=== PATIENT | female | born 1965 | race Caucasian/White ===

== ENCOUNTER 2019-11-19 10:44 | Emergency (ER) | payer MEDICAID, SELFPAY ==
[2019-11-19 10:45] VITALS: BP 136/80; PULSE 88; RESP 18; TEMP 36.8; O2SAT 96; BMI 28.0
--- NOTE | 2019-11-19 10:49 | ED.DCSUM_ITS ---
- ER Visit Summary Date of Service: 11/19/19 Chief Complaint: Right arm burn History of Present Illness: The patient is a 54 F who presents with right arm burn. She was at work today when her sleeve was caught in a steam machine. The machine activated and she sustained a thermal burn to the right arm. She is having pain in the distal upper arm to the mid forearm on the right-hand side. Her last tetanus was unknown. Fentanyl was given by EMS. She continues to have pain. She denies any nolasco to her face or hand on the right side. Physical Examination: Vital signs are reviewed. Skin exam reveals partial- thickness burn in the distal right upper arm to mid forearm area. There are a couple of blisters in the antecubital area on the right-hand side. She has no pain or nolasco on the right hand. She does have tenderness in these burn areas. Test Results: None performed Emergency Department Course and Treatment: Patient is given morphine for pain control. Her tetanus was updated. On reevaluation her right arm seems less red. She does have the blistered areas in the antecubital area. There are no new areas of blistering. Patient will have bacitracin applied to these areas. Worker's Compensation forms will be filled out. She will need to follow-up with [employer]. I will send her home with topical antibacterial cream. Treatment Plan: [] Disposition: Discharge Impression: Partial-thickness burn, right arm This note was generated with [employer] dictation software. It may contain incorrect words, spelling, and punctuation that were not noted in review of the chart prior to signing ED Disposition - Plan for ED Patient: Disposition: Home or Assisted Living Instructions: ED First- and Second-Degree Nolasco [facility] Prescriptions: Bacitracin Ointment 1 applic TOPICAL TID #1 tube Transmission Status: Pending to [facility] Naproxen [Naprosyn] 500 mg PO BID PRN #20 tab Transmission Status: Pending to [facility]
[2019-11-19 10:54] VITALS: BP 136/80; PULSE 82; RESP 18; TEMP 36.8; O2SAT 94
[2019-11-19] MEDS: Diphth,Pertuss(Acell),Tet Vac 0.5 ML Vial IM (10:57)
[2019-11-19] MEDS: Morphine 4 MG/ML Syringe IV (10:58)
[2019-11-19 11:45] VITALS: BP 147/67; PULSE 62; RESP 15; O2SAT 98
[2019-11-19] MEDS: BACITRACIN 15 GM Tube 1 APPLIC TOPICAL (11:48)
== END 2019-11-19 11:51 | disposition home or self-care (01) ==
PROVIDERS: Emergency Provider Emergency Medicine
DX: T22.00XA Burn of unspecified degree of shoulder and upper limb, except wrist and hand, unspecified site, initial encounter (principal); X17.XXXA Contact with hot engines, machinery and tools, initial encounter; Y93.9 Activity, unspecified; Y92.9 Unspecified place or not applicable
CPT/HCPCS: 90715; 96374; 99284; J7030

== ENCOUNTER 2020-02-11 14:00 | Outpatient (RCR) | payer OTHER, MEDICAID, SELFPAY ==
[2019-12-22 13:29] VITALS: BMI 28.0
--- NOTE | 2020-01-06 15:59 | HP.OTEVAL_ITS ---
Patient's Visit Information ELIS MORENO is a 54 year old F, referred to Occupational Therapy by VIOLA Lynch, with a diagnosis of second degree burn of right UE. Date of Evaluation: 01/06/20 Occupational Therapist: Samreen Jennings, OTR/Marivel, CHT - Subjective This 54 year old female as seen for OT eval with dx of right upper arm, forearm, and shoulder 2nd degree nolasco. Pt states while at work on 2019 her shirt sleeve got caught in the handle for steam. Pt states squad was called and the pt was taken to [facility] ER. pt is right handed. due to limited ROM and pain. pt states she does her own ADLs but states it takes longer due to limited motion. - Pain right UE 2 Pain Intensity Range: 8 - ROM Shoulder: right/left WNL Elbow: right -10/145 left -10/145 Forearm: right/left WNL ROM Comments: pt demo good ROM -but reports a pulling in her elbow - Strength Shoulder: right 4/5 left 4+/5 Elbow: right 4/5 left 4+/5 Environmental Test Technician: right 45# left 65# Lateral Pinch: right 6# left 12# Tripod Pinch: right 2# left 12# - Sensation Sensation Comments: denies - Quick DASH-Disab of Arm,Shoulder& Hand Quick DASH Score: 68.3325 - Goals Goal:: pt will demo a increase in right UE MMT to 4+/5 to increase pts ind. with ADLs and IADLs by d/c. pt will demo a increase in right driver recruiter strength to 55# or greater to return pt to ind. with ADls and IADLs by d/c Goal:: pt will demo right elbow ROM equal to unaffected UE by d/c to return pt to PLOF by d/c Goal:: pt will report with use of right UE with ADLs and IADLs pain no greater than 2/10 by d/c Goal:: pt will demo understanding of scar mtg by end of 2nd visit to decrease scar adhesions. - Rehabilitation General Assessment: pt demo with second degree burn of right UE, inner arm elbow forearm. skin is dry and open in areas- pt weak and limited with functional use of right UE with ADls. pt would benefit from skilled OT services 2x week for 3 weeks to return pt to PLOF. Today therapist ed. pt on use of protective arm sleeve when she returns to work, massage of soft tissue with cream or vasaline, along with ROM ex to simulate work task. pt demo understanding and agree to POC. Rehabilitation Potential: Good - Anticipated Interventions A/AAROM/PROM, Strengthening, Scar Care, Triggerpoint Release, Desensitization, Sensory Retraining, Wound Care, Modalities, Orthoses, Joint Protection/Energy Conservation, Ergonomic Education - Visit Plan Frequency: 1-2x /Week Duration: 3 Weeks TEXT: Thank you for the opportunity to evaluate your patient. For Medicare and Medicare HMO plans, please review the plan of care and approve it. It will need to be FAXED BACK to us at [phone] for Medicare purposes. Please let me know if there are questions or concerns regarding this plan of care. Physician Signature: Date:__
--- NOTE | 2020-02-11 14:16 | HP.OTDCSUM ---
It has been my pleasure to treat ELIS MORENO under orders from Valeria Kemp, VIOLA, for the diagnosis of second degree burn of right UE for a total of 10 visit(s). Please see the following information for a summary of their discharge status. % Improvement: 80 Objective/Function: pt demo with a right director of employer services at 58# left is 60#. right MMT of right UE 5/5. right elbow ROM is WNL. pt reports she is IND with ADls and IADls Patient Goals: Regain Mobility, Use Hand/Wrist/Arm Normally Again Goal:: pt will demo a increase in right UE MMT to 4+/5 to increase pts ind. with ADLs and IADLs by d/c. pt will demo a increase in right director of employer services strength to 55# or greater to return pt to ind. with ADls and IADLs by d/c Goal:: pt will demo right elbow ROM equal to unaffected UE by d/c to return pt to PLOF by d/c Goal:: pt will report with use of right UE with ADLs and IADLs pain no greater than 2/10 by d/c Goal:: pt will demo understanding of scar mtg by end of 2nd visit to decrease scar adhesions. Plan: D/C Discharge Comments: pt was seen for 10 OT visits following 2nd* burn of right UE- pt demo a return of strength and ROM at PLOF- pt also reports ind. with ADls and IADLs. pt has met goals in OT and is d/c at this time. pt rec'd to return to reg. work hours and duties. If there are questions or concerns regarding this patient's occupational therapy, please fell free to call me at [phone]. Thank you for the referral of this patient. Sincerely, Samreen Jennings, OTR/L, CHT
== END 2020-02-11 19:00 | disposition home or self-care (01) ==
LOC: OT 14:00
PROVIDERS: Referring Provider Nurse Practitioner Family; Visit Provider Nurse Practitioner Family
DX: T22.231D Burn of second degree of right upper arm, subsequent encounter (principal); T22.211D Burn of second degree of right forearm, subsequent encounter; T22.20XD Burn of second degree of shoulder and upper limb, except wrist and hand, unspecified site, subsequent encounter
CPT/HCPCS: 97110; 97140; 97166; 97530